=== PATIENT | male | born 1955 | race Caucasian/White ===

== ENCOUNTER 2021-03-03 20:06 | Emergency (ER) | payer OTHER ==
[~2021-03-03] VITALS: Ht 190.5 cm; Wt 126.1 kg
--- NOTE | 2021-03-03 20:39 | NUR ---
ER in triage examining patient.
[2021-03-03 20:45] VITALS: BP_SYST 158
--- NOTE | 2021-03-03 20:45 | NUR ---
Patient came in to the ER with complaints of mid abdominal pain, sharp, 6/10 that began 3 days ago. Reports he received a root canal 1 week ago and took Clindamycin. He states he took Tylenol and Pepto bismul at home with improvement. Patient states he had a second root canal and is taking Flagyl at this time. Otherwise, denies fever, chills, diarrhea, or any other complaints. Patient respirations even unlabored, ambulates with steady gait.
[2021-03-03 21:12] LABS: BASOPHILS % (AUTO) 0.1 % (0.0-2.0); HEMATOCRIT 44.6 % (36-54); HEMOGLOBIN 15.1 g/dL (14.0-18.0); LYMPHOCYTES % (AUTO) 5.3 % (20.5-51.5); MEAN CORPUSCULAR HEMOGLOBIN 30 pg (27-31); MEAN CORPUSCULAR HGB CONC 34 % (32-36); MEAN CORPUSCULAR VOLUME 88 fL (79.0-98.0); MONOCYTES # (AUTO) 1.2 K/uL (0.0-1.0); NEUTROPHILS # (AUTO) 17.2 K/uL (1.8-7.7); NEUTROPHILS % (AUTO) 88.6 % (40.0-70.0); PLATELET COUNT (AUTO) 175 K/uL (130-430); RED BLOOD CELL COUNT(AUTO) 5.07 MIL/uL (4.2-6.2); RED CELL DISTRIBUTION WIDTH 13.3 % (9.0-15.0); WHITE BLOOD COUNT (AUTO) 19.5 K/uL (4.8-10.8)
[2021-03-03 21:32] LABS: CREATININE 0.89 mg/dL (0.55-1.30)
[2021-03-03] MEDS ORDERED: OMEP40CA20 PO (21:35)
[2021-03-03 21:40] LABS: ALBUMIN 3.8 g/dL (3.4-4.8)
[2021-03-03 22:04] LABS: BILIRUBIN,URINE NEGATIVE (NEGATIVE); BLOOD, URINE NEGATIVE (NEGATIVE); CLARITY/URINE CLEAR (CLEAR); COLOR,URINE YELLOW (YELLOW); GLUCOSE,URINE NEGATIVE (NEGATIVE); KETONES,URINE NEGATIVE (NEGATIVE); LEUKOCYTE ESTERASE ,URINE NEGATIVE (NEGATIVE); NITRITE, URINE NEGATIVE (NEGATIVE); PH,URINE 6.5 (5.0-8.0); PROTEIN URINE NEGATIVE (NEGATIVE); UROBILINOGEN,URINE 0.2 (0.2-1.0)
[2021-03-03] MEDS ORDERED: PANTOPRAZOLE SODIUM 40 MG TAB PO ONE (22:15)
[2021-03-03 22:52] LABS: C-REACTIVE PROTEIN QUANT 0.5 mg/dL (0-0.5)
[2021-03-03 23:08] VITALS: BP_SYST 148
--- NOTE | 2021-03-03 23:08 | NUR ---
Patient given written and verbal discharge instructions and verbalizes understanding. ER MD discussed with patient the results and treatment provided. Patient in stable condition. ID arm band removed.Rx of given. Patient educated on pain management and to follow up with PMD. Pain Scale 2/10. Opportunity for questions provided and answered.
== END 2021-03-03 23:08 | disposition home or self-care (01) ==
LOC: SED 20:06
DX: K29.70 Gastritis, unspecified, without bleeding (principal); I10 Essential (primary) hypertension; Z88.1 Allergy status to other antibiotic agents; Z88.8 Allergy status to other drugs, medicaments and biological substances
CPT/HCPCS: 36415; 76376; 80053; 81003; 82150; 83605; 83690; 84484; 85025; 86140; 99284

== ENCOUNTER 2021-05-07 19:01 | Emergency (ER) | payer OTHER ==
[~2021-05-07] VITALS: Ht 190.5 cm; Wt 127.9 kg
[~2021-05-07 19:01] MED LIST: OMEP40CA20 PO
[2021-05-07 19:24] VITALS: BP_SYST 159
[2021-05-07] MEDS ORDERED: ACETAMINOPHEN 500 MG TABLET PO ONE ×2 (19:45→20:00)
[2021-05-07] MEDS ORDERED: amLODIPine BESYLATE 10 MG TABLET PO ONE (20:00)
[2021-05-07] MEDS ORDERED: METOCLOPRAMIDE HCL 10 MG TABLET PO ONE (20:00)
[2021-05-07] MEDS ORDERED: ACET-2634 PO (20:52)
[2021-05-07] MEDS ORDERED: METO-290 PO (20:52)
[2021-05-07] MEDS ORDERED: IBUP-1969 PO (20:52)
[2021-05-07 21:23] VITALS: BP_SYST 133
== END 2021-05-07 21:23 | disposition home or self-care (01) ==
LOC: SED 19:01
DX: R51.9 Headache, unspecified (principal); I10 Essential (primary) hypertension; F41.9 Anxiety disorder, unspecified; Z88.1 Allergy status to other antibiotic agents; Z79.899 Other long term (current) drug therapy
CPT/HCPCS: 99284; J8597

== ENCOUNTER 2021-05-29 20:30 | Emergency (ER) | payer OTHER ==
[~2021-05-29] VITALS: Ht 190.5 cm; Wt 127.9 kg
[~2021-05-29 20:30] MED LIST changes: +ACET-2634 PO; +IBUP-1969 PO; +METO-290 PO
[2021-05-29 20:35] VITALS: BP_SYST 156
--- NOTE | 2021-05-29 20:39 | NUR ---
Patient to ER bed 06 to gown for evaluation. Side rails up.
--- NOTE | 2021-05-29 20:42 | NUR ---
Pt brought by self, A&Ox4, pt presents to ER with anxiety , tachycardia and chest pressure , pt states he took Vistaryl and Benadryl today for anxiety, skin pink and warm, respirations even and unlabored, cap refill <3.
[2021-05-29 21:55] LABS: HEMATOCRIT 46.5 % (36-54); HEMOGLOBIN 15.5 g/dL (14.0-18.0); MEAN CORPUSCULAR HEMOGLOBIN 30 pg (27-31); MEAN CORPUSCULAR HGB CONC 33 % (32-36); MEAN CORPUSCULAR VOLUME 89 fL (79.0-98.0); PLATELET COUNT (AUTO) 178 K/uL (130-430); RED BLOOD CELL COUNT(AUTO) 5.21 MIL/uL (4.2-6.2); RED CELL DISTRIBUTION WIDTH 13.1 % (9.0-15.0); WHITE BLOOD COUNT (AUTO) 22.7 K/uL (4.8-10.8)
[2021-05-29] MEDS: ASPIRIN 81 MG TAB.CHEW PO ONE (22:04)
[2021-05-29] MEDS: METOPROLOL TARTRATE 5 MG/5 ML AMPUL IVP ONE (22:04)
[2021-05-29 22:32] LABS: ANION GAP 6 (5-15); CALCIUM 10.1 mg/dL (8.4-11.0); CHLORIDE 103 mmol/L (98-107); CREATININE 0.98 mg/dL (0.55-1.30); GLUCOSE 133 mg/dL (70-99); POTASSIUM 3.9 mmol/L (3.5-5.1); SODIUM SERUM 139 mmol/L (136-145); UREA NITROGEN, BLOOD 15 mg/dL (8-21)
[2021-05-29 22:41] LABS: ALANINE AMINOTRANSFERASE 39 U/L (12-78); ALBUMIN 3.8 g/dL (3.4-4.8); ASPARTATE AMINOTRANSFERASE 15 U/L (10-37)
[2021-05-29 22:45] LABS: GFR AFRICAN AMERICAN 98 mL/min (>90)
[2021-05-29 22:58] LABS: BAND % (MANUAL) 8 % (0-6); BASOPHILS % (MANUAL) 0 % (0-2); EOSINOPHILS % (MANUAL) 1 % (0-7); LYMPHOCYTES % (MANUAL) 7 % (20-46); MONOCYTES % (MANUAL) 6 % (0-11)
[2021-05-29] MEDS: NACL 0.9% 1,000 ML IV ONE (23:29)
[2021-05-29 23:42] LABS: HEMATOCRIT 45.5 % (36-54); HEMOGLOBIN 15.2 g/dL (14.0-18.0); MEAN CORPUSCULAR HEMOGLOBIN 30 pg (27-31); MEAN CORPUSCULAR HGB CONC 33 % (32-36); MEAN CORPUSCULAR VOLUME 89 fL (79.0-98.0); PLATELET COUNT (AUTO) 176 K/uL (130-430); RED BLOOD CELL COUNT(AUTO) 5.12 MIL/uL (4.2-6.2); RED CELL DISTRIBUTION WIDTH 13.1 % (9.0-15.0); WHITE BLOOD COUNT (AUTO) 23.8 K/uL (4.8-10.8)
--- NOTE | 2021-05-30 00:49 | NUR ---
COVID SWAB OBTAINED ND SENT TO THE LAB.
[2021-05-30] MEDS: levETIRAcetam 500 MG TABLET PO ONE (01:15)
[2021-05-30] MEDS: ROSUVASTATIN CALCIUM 5 MG/TAB (CRESTOR) PO SCH (01:15)
--- NOTE | 2021-05-30 01:54 | NUR ---
SKIN ASSESSMENT COMPLETE, SKIN INTACT. PENDING TRANSFER TO [facility]. NO ACUTE DISTRESS AT THIS TIME
[2021-05-30] MEDS ORDERED: CEFEPIME 2 GM in D5W 100 ML IV ONE (02:00)
[2021-05-30] MEDS: NACL 0.9% 1,000 ML IV ONE (02:00)
--- NOTE | 2021-05-30 03:02 | NUR ---
URINE SENT TO LAB
--- NOTE | 2021-05-30 03:03 | NUR ---
crestor not administered because the medication is not stocked. pt notified, aware
[2021-05-30 03:23] LABS: BILIRUBIN,URINE NEGATIVE (NEGATIVE); BLOOD, URINE NEGATIVE (NEGATIVE); CLARITY/URINE CLEAR (CLEAR); COLOR,URINE YELLOW (YELLOW); GLUCOSE,URINE NEGATIVE (NEGATIVE); KETONES,URINE NEGATIVE (NEGATIVE); LEUKOCYTE ESTERASE ,URINE NEGATIVE (NEGATIVE); NITRITE, URINE NEGATIVE (NEGATIVE); PROTEIN URINE TRACE (NEGATIVE)
--- NOTE | 2021-05-30 03:30 | NUR ---
ASSUMED CARE, PT WITH EYES CLOSED, IN NAD. RESP EVEN AND UNLABORED, ON VIA NC @ 97% NSR ON MONITOR. SAFETY PRECAUTIONS IN PLACE, WILL CNT TO MONITOR.
[2021-05-30 03:32] LABS: URINE SULFO SALICYLIC ACID NEGATIVE (NEGATIVE)
--- NOTE | 2021-05-30 04:24 | NUR ---
[facility] NOT AVAILABLE, [facility] CALLED- SPOKE TO TARA, WILL GET SOON POSSIBLE.
[2021-05-30] MEDS ORDERED: CEFEPIME 1 GM/VIAL (MAXIPIME) ONE (06:02)
[2021-05-30] MEDS: CEFEPIME 2 GM in D5W 100 ML IV ONE (06:18)
--- NOTE | 2021-05-30 06:21 | NUR ---
PT WITH NAUSEA/VOMITING, DR HERNANDEZ UPDATED. ORDERS RECEIEVED.
[2021-05-30] MEDS: ACETAMINOPHEN 500 MG TABLET PO ONE (06:27)
[2021-05-30] MEDS: ONDANSETRON HCL 4 MG/2 ML VIAL IVP ONE (06:27)
--- NOTE | 2021-05-30 07:03 | NUR ---
PT REPORTS FEELING BETTER, IV FLUIDS INFUSING WELL. WAITING FOR [facility] TO CALL BACK
--- NOTE | 2021-05-30 07:10 | NUR ---
REPORT RECEIVED FROM NILTON LUNA FOR CONTINUING CARE
--- NOTE | 2021-05-30 07:56 | NUR ---
Patient to be transferred to [facility]. Is being transferred due to higher level of care. Receiving facility has accepting physician and available space. ER physician has signed transfer form. Patient or responsible republican has agreed to transfer and signed form. Patient belongings inventoried and will be sent with patient. Copy of nursing notes, lab reports, EKG, Physicians Orders and X-rays to be sent with patient. Report called to NILTON RG at receiving facility. Receiving physician is DR. HUITRON. [facility] ambulance service has been called for transfer. ETA is [id number].
[2021-05-30 09:00] VITALS: BP_SYST 134
--- NOTE | 2021-05-30 09:01 | NUR ---
AMBULANCE HERE FOR PICKUP/TRANSFER. REPORT GIVEN TO DARREL
== END 2021-05-30 09:00 | disposition home or self-care (01) ==
LOC: SED 20:30
DX: D72.829 Elevated white blood cell count, unspecified (principal); R10.13 Epigastric pain; R00.0 Tachycardia, unspecified; I10 Essential (primary) hypertension; Z88.1 Allergy status to other antibiotic agents; Z88.8 Allergy status to other drugs, medicaments and biological substances; Z79.899 Other long term (current) drug therapy
CPT/HCPCS: 36415; 70491; 71045; 74176; 76376 ×2; 80053; 81003; 83051; 83605; 83690; 83880; 84484; 85007; 85014; 85027; 85048; 85049; 87040; 87426; 93005; 96361 ×2; 96365; 96375 ×2; 99285; J0692; J2405; J3490; J7030 ×2; Q9967

== ENCOUNTER 2021-09-01 09:09 | Emergency (ER) | payer OTHER ==
[~2021-09-01] VITALS: Ht 167.6 cm; Wt 124.7 kg
--- NOTE | 2021-09-01 09:30 | NUR ---
Pt brought by self, A&Ox4, pt presents to ER with R upper abd pain radiating to the back, skin pink and warm, cap refill <3, VSS, respirations even and unlabored, will cont to monitor.
--- NOTE | 2021-09-01 09:35 | NUR ---
Dr Madrid evaluating patient at bedside
[2021-09-01 10:00] VITALS: BP_SYST 143
[2021-09-01 10:24] LABS: BASOPHILS % (AUTO) 0.2 % (0.0-2.0); EOSINOPHILS # (AUTO) 0.3 K/uL (0.0-0.4); EOSINOPHILS % (AUTO) 2.6 % (0.0-4.0); HEMATOCRIT 48.4 % (36-54); HEMOGLOBIN 16.4 g/dL (14.0-18.0); LYMPHOCYTES # (AUTO) 2.1 K/uL (1.0-5.5); MEAN CORPUSCULAR HEMOGLOBIN 30 pg (27-31); MEAN CORPUSCULAR HGB CONC 34 % (32-36); MEAN CORPUSCULAR VOLUME 88 fL (79.0-98.0); MONOCYTES # (AUTO) 1.1 K/uL (0.0-1.0); MONOCYTES % (AUTO) 10.2 % (1.7-9.3); NEUTROPHILS # (AUTO) 7.6 K/uL (1.8-7.7); PLATELET COUNT (AUTO) 170 K/uL (130-430); RED BLOOD CELL COUNT(AUTO) 5.53 MIL/uL (4.2-6.2); RED CELL DISTRIBUTION WIDTH 13.2 % (9.0-15.0); WHITE BLOOD COUNT (AUTO) 11.1 K/uL (4.8-10.8)
[2021-09-01 10:40] LABS: ALBUMIN 3.5 g/dL (3.4-4.8); CREATININE 1.06 mg/dL (0.55-1.30); TOTAL BILIRUBIN 0.4 mg/dL (0.0-1.0)
[2021-09-01 10:48] LABS: POTASSIUM 4.3 mmol/L (3.5-5.1)
[2021-09-01 12:02] LABS: BILIRUBIN,URINE NEGATIVE (NEGATIVE); BLOOD, URINE NEGATIVE (NEGATIVE); CLARITY/URINE CLEAR (CLEAR); COLOR,URINE YELLOW (YELLOW); GLUCOSE,URINE NEGATIVE (NEGATIVE); KETONES,URINE NEGATIVE (NEGATIVE); LEUKOCYTE ESTERASE ,URINE NEGATIVE (NEGATIVE); NITRITE, URINE NEGATIVE (NEGATIVE); PROTEIN URINE NEGATIVE (NEGATIVE); UROBILINOGEN,URINE 0.2 (0.2-1.0)
[2021-09-01 12:15] VITALS: BP_SYST 143
--- NOTE | 2021-09-01 12:16 | NUR ---
Patient given written and verbal discharge instructions and verbalizes understanding. ER MD discussed with patient the results and treatment provided. Patient in stable condition. ID arm band removed. No Rx given. Patient educated on pain management and to follow up with PMD. Pain Scale 0/10. Opportunity for questions provided and answered. Medication side effect fact sheet provided.
== END 2021-09-01 12:15 | disposition home or self-care (01) ==
LOC: SED 09:09
DX: R10.11 Right upper quadrant pain (principal); I10 Essential (primary) hypertension; Z88.1 Allergy status to other antibiotic agents; Z88.8 Allergy status to other drugs, medicaments and biological substances; Z79.899 Other long term (current) drug therapy
CPT/HCPCS: 36415; 76376; 80053; 81003; 85025; 99284